=== PATIENT | male | born 1995 ===

== ENCOUNTER → 2019-01-28 | Outpatient (CLI) | payer OTHER ==
[~2019-01-28] MED LIST: ALB18R INH; BUS5 PO; FLUT16SP19 NS; LORA-630 PO; SERT-181 PO; SERT-184 PO
--- NOTE | 2019-01-28 13:50 | RADIOLOGY IMAGING REPORT ---
FACILITY: [facility] - [place] PATIENT NAME: Jerad Cardenas : 1995 MR: [id number] V: [id number] EXAM DATE: ORDERING PHYSICIAN: INDER FITZGERALD TECHNOLOGIST: Location: [facility] - [place] Patient: Jerad Cardenas : 1995 Visit/Account:[id number] Date of Sevice: 01/28/2019 CHEST PA LAT HISTORY: Right rib mass COMPARISON: None FINDINGS: Cardiomediastinal contours: Normal Lungs and pleura: Normal Bones/soft tissues: Normal Other findings: None significant IMPRESSION: 1. Normal chest. 2. Consider CT of the chest with contrast if there is concern for chest wall or rib mass. Report Dictated By: Rosalio Thompson MD at 01/28/2019 1:44 PM Report E-Signed By: Rosalio Thompson MD at 01/28/2019 1:45 PM WSN:[id number]
== END ==
LOC: RAD 12:15
PROVIDERS: ATTEND Internal Medicine
DX: M79.89 Other specified soft tissue disorders (principal)
CPT/HCPCS: 71046